=== PATIENT | female | born 1990 | race Caucasian/White ===

== ENCOUNTER 2018-07-09 18:12 | Emergency (ER) | payer OTHER ==
--- NOTE | 2018-07-09 18:36 | EDPHY ---
H & P Stated Complaint: llq abd pain Time Seen by Provider: 07/09/18 18:36 HPI/ROS: HPI: This is a 28-year-old female who presents with Chief Complaint: Left lower quadrant pain Location: Left lower quadrant abdomen Quality: Pain Duration: Since last night Signs and Symptoms: no fever, no nausea, no vomiting, no hematemesis, no blood in stool, no abdominal bloating, no diarrhea, no back pain, no urinary symptoms , no vaginal bleeding/discharge, no indigestion, no chest pain, no shortness of breath Timing: Acute, constant Severity: Moderate Context: Patient is transgender, taking testosterone, presents with sudden onset of left lower quadrant abdominal pain that started last night. Pain is nonradiating in nature. Pain is described as mild to moderate. Nothing makes the pain better or worse. Patient reports that the pain started while she was having a bowel movement and urinating last night. She denies any dysuria, blood in her urine, nausea, vomiting, diarrhea, back pain, vaginal bleeding. No history of kidney stones. Modifying Factors: None Comment: ROS: A comprehensive 10 system review of systems is otherwise negative aside from elements mentioned in the history of present illness. MEDICAL/SURGICAL/SOCIAL HISTORY: Medical history: Transgender, hormone supplementation Surgical history: Denies Social history: Currently in a relationship. Family history noncontributory. CONSTITUTIONAL: Extremely well-appearing nontoxic appearing adult female, awake and alert, no obvious distress HEENT: Atraumatic and normocephalic, PERRL, EOMI. Nares patent; no rhinorrhea; no nasal mucosal edema. Tympanic membranes clear. Oropharynx clear, no exudate and moist pink mucosa. Airway patent. No lymphadenopathy. No meningismus. Cardiovascular: Normal S1/S2, regular rate, regular rhythm, without murmur rub or gallop. PULMONARY/CHEST: Symmetrical and nontender. Clear to auscultation bilaterally. Good air movement. No accessory muscle usage. ABDOMEN: Soft, nondistended, mild left lower quadrant tenderness, no rebound, no guarding, no peritoneal signs, no masses or organomegaly. No CVAT. Bowel sounds heard x4 quadrants. EXTREMITIES: 2/2 pulses, strength 5/5, no deformities, no clubbing, no cyanosis or edema. NEUROLOGICAL: no focal neuro deficits. GCS 15. SKIN: Warm and dry, no erythema. no rash. Good capillary refill. Source: Patient Exam Limitations: No limitations - Personal History LMP (Females 10-55): Over 28 Days Ago Current Tetanus Diphtheria and Acellular Pertussis (TDAP): No - Medical/Surgical History Hx Asthma: Yes Hx Chronic Respiratory Disease: No Hx Diabetes: No Hx Cardiac Disease: No Hx Renal Disease: No Hx Cirrhosis: No Hx Alcoholism: No Hx HIV/AIDS: No Hx Splenectomy or Spleen Trauma: No Other PMH: denies - Social History Smoking Status: Never smoked Constitutional: Initial Vital Signs Temperature (C) 37.1 C 07/09/18 18:18 Heart Rate 72 07/09/18 18:18 Respiratory Rate 18 07/09/18 18:18 Blood Pressure 141/72 H 07/09/18 18:18 O2 Sat (%) 94 07/09/18 18:18 O2 Delivery Mode Room Air Allergies/Adverse Reactions: codeine Allergy (Verified 07/09/18 18:17) latex Allergy (Verified 07/09/18 18:18) Home Medications: Medication Instructions Recorded Albuterol 07/09/18 Escitalopram Oxalate 07/09/18 Modafinil 07/09/18 NK [No Known Home Meds] 07/09/18 Testosterone 07/09/18 Medical Decision Making - Diagnostics Imaging Results: Imaging Impressions Abdomen CT 07/09/18 18:39 Impression: Features most consistent with an epiploic appendagitis adjacent to the proximal sigmoid colon in the left lower quadrant. Findings were discussed with Kathy Obregon PA-C at 20:34, on 07/09/2018. ED Course/Re-evaluation: Vital signs reviewed and stable. No systemic signs. Laboratory studies, urinalysis, IV fluids, IV medications, CT abdomen and pelvis scan ordered Given 1 L normal saline, IV Toradol with adequate relief of pain Labs reviewed. No signs of leukocytosis/anemia/platelet dysfunction/MATT/ elevated LFTs/electrolyte imbalance/pancreatitis. Urinalysis shows no signs of infection, no blood. 2039: Called by Radiology, Dr. Garduno, who advised CT abdomen and pelvis scan shows epiploic appendagitis adjacent to the proximal sigmoid colon in the left lower quadrant. Reassessed patient who is soft and nontender. Discussed case with attending who advised no antibiotics indicated and ibuprofen as needed. Referral to primary care provider given. This patient was seen under the supervision of my secondary supervising physician. I evaluated care for this patient independently. Discussed this patient with Dr. Kolb. Differential Diagnosis: Abdominal pain including but not limited to appendicitis, cholecystitis, gastritis and urinary tract infection. - Data Points Laboratory Results: Laboratory Results 07/09/18 18:55 07/09/18 18:55 07/09/18 07/09/18 07/09/18 18:55 18:55 18:55 WBC 7.04 10^3/uL 10^3/uL (3.80-9.50) RBC 5.35 10^6/uL H 10^6/uL (4.18-5.33) Hgb 16.9 g/dL H g/dL (12.6-16.3) Hct 48.7 % H % (38.0-47.0) MCV 91.0 fL fL (81.5-99.8) MCH 31.6 pg pg (27.9-34.1) MCHC 34.7 g/dL g/dL (32.4-36.7) RDW 13.2 % % (11.5-15.2) Plt Count 274 10^3/uL 10^3/uL (150-400) MPV 10.9 fL fL (8.7-11.7) Neut % (Auto) 52.8 % % (39.3-74.2) Lymph % (Auto) 32.1 % % (15.0-45.0) [place] % (Auto) 10.2 % % (4.5-13.0) Eos % (Auto) 4.1 % % (0.6-7.6) Baso % (Auto) 0.7 % % (0.3-1.7) Nucleat RBC Rel Count 0.0 % % (0.0-0.2) Absolute Neuts (auto) 3.71 10^3/uL 10^3/uL (1.70-6.50) Absolute Lymphs (auto) 2.26 10^3/uL 10^3/uL (1.00-3.00) Absolute Monos (auto) 0.72 10^3/uL 10^3/uL (0.30-0.80) Absolute Eos (auto) 0.29 10^3/uL 10^3/uL (0.03-0.40) Absolute Basos (auto) 0.05 10^3/uL 10^3/uL (0.02-0.10) Absolute Nucleated RBC 0.00 10^3/uL 10^3/uL (0-0.01) Immature Gran % 0.1 % % (0.0-1.1) Immature Gran # 0.01 10^3/uL 10^3/uL (0.00-0.10) Sodium 136 mEq/L mEq/L (135-145) Potassium 4.6 mEq/L mEq/L (3.3-5.0) Chloride 104 mEq/L mEq/L (97-110) Carbon Dioxide 21 mEq/l L mEq/l (22-31) Anion Gap 11 mEq/L mEq/L (8-16) BUN 10 mg/dL mg/dL (7-23) Creatinine 0.9 mg/dL mg/dL (0.6-1.0) Estimated GFR > 60 Glucose 83 mg/dL mg/dL (70-100) Calcium 9.4 mg/dL mg/dL (8.5-10.4) Total Bilirubin 0.5 mg/dL mg/dL (0.1-1.4) Conjugated Bilirubin 0.3 mg/dL mg/dL (0.0-0.5) Unconjugated Bilirubin 0.2 mg/dL mg/dL (0.0-1.1) AST 27 IU/L IU/L (14-46) ALT 27 IU/L IU/L (9-52) Alkaline Phosphatase 105 IU/L IU/L (38-126) Total Protein 7.4 g/dL g/dL (6.3-8.2) Albumin 4.6 g/dL g/dL (3.5-5.0) Lipase 123 IU/L IU/L (23-300) Beta HCG, Qual NEGATIVE Urine Color Urine Appearance Urine pH Ur Specific [place] Urine Protein Urine Ketones Urine Blood Urine Nitrate Urine Bilirubin Urine Urobilinogen Ur Leukocyte Esterase Urine Glucose 07/09/18 18:30 WBC RBC Hgb Hct MCV MCH MCHC RDW Plt Count MPV Neut % (Auto) Lymph % (Auto) [place] % (Auto) Eos % (Auto) Baso % (Auto) Nucleat RBC Rel Count Absolute Neuts (auto) Absolute Lymphs (auto) Absolute Monos (auto) Absolute Eos (auto) Absolute Basos (auto) Absolute Nucleated RBC Immature Gran % Immature Gran # Sodium Potassium Chloride Carbon Dioxide Anion Gap BUN Creatinine Estimated GFR Glucose Calcium Total Bilirubin Conjugated Bilirubin Unconjugated Bilirubin AST ALT Alkaline Phosphatase Total Protein Albumin Lipase Beta HCG, Qual Urine Color YELLOW Urine Appearance HAZY Urine pH 5.0 (5.0-7.5) Ur Specific [place] 1.019 (1.002-1.030) Urine Protein NEGATIVE (NEGATIVE) Urine Ketones TRACE H (NEGATIVE) Urine Blood NEGATIVE (NEGATIVE) Urine Nitrate NEGATIVE (NEGATIVE) Urine Bilirubin NEGATIVE (NEGATIVE) Urine Urobilinogen 2.0 EU H EU (0.2-1.0) Ur Leukocyte Esterase NEGATIVE (NEGATIVE) Urine Glucose NEGATIVE (NEGATIVE) Medications Given: Discontinued Medications Sodium Chloride (Ns) 1,000 mls @ 0 mls/hr IV EDNOW ONE; Wide Open PRN Reason: Protocol Stop: 07/09/18 18:40 Last Admin: 07/09/18 19:02 Dose: 1,000 mls Ketorolac Tromethamine (Toradol) 30 mg IVP EDNOW ONE Stop: 07/09/18 18:40 Last Admin: 07/09/18 19:03 Dose: 30 mg Departure - Departure Disposition: Home, Routine, Self-Care Clinical Impression: Appendicitis epiploica Condition: Good Instructions: Diverticulitis (ED), Diverticulitis Diet (ED) Additional Instructions: Consume a minimum of 8-10 glasses of water or electrolyte fluid replacement drinks that include Gatorade, Powerade, Pedialyte. Eat a bland diet for the next 48 hours and then slowly advance as tolerated. Take Tylenol 650 mg every 4 hours and/or Ibuprofen 600 mg every 8 hours with food as needed for pain. Take Zofran 1 tab every 4 hours as needed for nausea, vomiting. Follow diverticular diet and prevent constipation by using MiraLax daily as needed. Establish care with primary care physician. Referrals: Ruma Hatfield MD [[facility] Primary Care Provider] - As per Instructions
[2018-07-09] MEDS ORDERED: KETOROLAC 30 MG/1 ML SDV IVP ONE (18:39)
[2018-07-09] MEDS ORDERED: NS 1,000 ML IV ONE (18:39)
[2018-07-09] MEDS ORDERED: IOPAMIDOL (ISOVUE-300) 100 ML BTL ONE (18:52)
[2018-07-09 19:08] LABS: PLATELET COUNT 274 10^3/uL (150-400)
[2018-07-09] MEDS ORDERED: ONDANSETRON 4MG PREPACK#2 BTL TAKEHOME ONE (21:10)
[2018-07-09 21:26] VITALS: BP 138/91
== END 2018-07-09 21:25 | disposition home or self-care (01) ==
DX: Q43.8 Other specified congenital malformations of intestine (principal); E86.9 Volume depletion, unspecified
CPT/HCPCS: 96374; J1885; Q9967

== ENCOUNTER 2018-07-31 20:34 | Emergency (ER) | payer OTHER ==
[2018-07-31] MEDS ORDERED: NS 1,000 ML IV ONE (20:43)
--- NOTE | 2018-07-31 20:45 | EDPHY ---
H & P Time Seen by Provider: 07/31/18 20:43 HPI/ROS: Chief complaint. Blood in stool HPI. 28-year-old female with black stool today. They called the nurse hotline who recommended coming to the emergency department. Patient had diverticulitis a few weeks ago was not treated with antibiotics but just with relaxation and anti-inflammatories and that seemed to improve. She has no abdominal pain. No nausea or vomiting. Does have some fatigue. She had chronic diarrhea and was found to be lactose intolerant. She had a normal colonoscopy in January. She does have occasional GERD upper GI endoscopy. She does not have peptic ulcer disease. Denies taking Pepto-Bismol. No history of GI bleeding ROS 10 systems were reviewed and negative with the exception of the elements mentioned in the history of present illness Past Medical/Surgical History: Past medical history is significant for narcolepsy, asthma, depression Social History: , nonsmoker, no alcohol Smoking Status: Never smoked Physical Exam: General Appearance: Alert well-developed female mild distress vitals are stable Eyes: Pupils equal and round no pallor or injection. ENT, Mouth: Mucous membranes are moist. Respiratory: There are no retractions, lungs are clear to auscultation. Cardiovascular: Regular rate and rhythm. Gastrointestinal: Abdomen is soft and nontender, no masses, bowel sounds normal. Rectal exam shows brown stool Neurological: Awake and alert, sensory and motor exams grossly normal. Skin: Warm and dry, no rashes. Musculoskeletal: Neck is supple nontender. Extremities symmetrical, full range of motion. Psychiatric: Patient is oriented X 3, there is no agitation. Constitutional: Initial Vital Signs Temperature (C) 36.4 C 07/31/18 20:36 Heart Rate 84 07/31/18 20:36 Respiratory Rate 16 07/31/18 20:36 Blood Pressure 127/94 H 07/31/18 20:36 O2 Sat (%) 95 07/31/18 20:36 O2 Delivery Mode Room Air Allergies/Adverse Reactions: codeine Allergy (Verified 07/09/18 18:17) lactase Allergy (Verified 07/31/18 20:39) lactose Allergy (Verified 07/31/18 20:39) latex Allergy (Verified 07/09/18 18:18) Home Medications: Medication Instructions Recorded Albuterol 07/09/18 Escitalopram Oxalate 07/09/18 Modafinil 07/09/18 NK [No Known Home Meds] 07/09/18 Testosterone 07/09/18 Medical Decision Making Procedures: IV normal saline ED Course/Re-evaluation: Stool is heme-negative. Patient, and I discussed laboratory evaluation, treatment plan including criteria for return importance of follow-up and further evaluation. They expressed understanding and agreement Differential Diagnosis: I considered peptic ulcer disease, intestinal bleeding, diverticulitis. Patient has no abdominal pain. Normal workup including negative stool. - Data Points Laboratory Results: Laboratory Results 07/31/18 21:00 07/31/18 21:00 07/31/18 07/31/18 07/31/18 21:00 21:00 21:00 WBC RBC Hgb Hct MCV MCH MCHC RDW Plt Count MPV Neut % (Auto) Lymph % (Auto) [place] % (Auto) Eos % (Auto) Baso % (Auto) Nucleat RBC Rel Count Absolute Neuts (auto) Absolute Lymphs (auto) Absolute Monos (auto) Absolute Eos (auto) Absolute Basos (auto) Absolute Nucleated RBC Immature Gran % Immature Gran # PT 14.5 SEC SEC (12.0-15.0) INR 1.11 (0.83-1.16) APTT 25.8 SEC SEC (23.0-38.0) Sodium 138 mEq/L mEq/L (135-145) Potassium 3.6 mEq/L mEq/L (3.3-5.0) Chloride 104 mEq/L mEq/L (97-110) Carbon Dioxide 24 mEq/l mEq/l (22-31) Anion Gap 10 mEq/L mEq/L (6-14) BUN 9 mg/dL mg/dL (7-23) Creatinine 0.8 mg/dL mg/dL (0.6-1.0) Estimated GFR > 60 Glucose 103 mg/dL H mg/dL (70-100) Calcium 9.3 mg/dL mg/dL (8.5-10.4) Total Bilirubin 0.6 mg/dL mg/dL (0.1-1.4) Conjugated Bilirubin 0.3 mg/dL mg/dL (0.0-0.5) Unconjugated Bilirubin 0.3 mg/dL mg/dL (0.0-1.1) AST 20 IU/L IU/L (14-46) ALT 27 IU/L IU/L (9-52) Alkaline Phosphatase 89 IU/L IU/L (38-126) Total Protein 6.9 g/dL g/dL (6.3-8.2) Albumin 4.2 g/dL g/dL (3.5-5.0) Beta HCG, Qual NEGATIVE Stool Occult Bld Scrn 07/31/18 07/31/18 21:00 20:50 WBC 7.46 10^3/uL 10^3/uL (3.80-9.50) RBC 5.11 10^6/uL 10^6/uL (4.18-5.33) Hgb 16.2 g/dL g/dL (12.6-16.3) Hct 46.7 % % (38.0-47.0) MCV 91.4 fL fL (81.5-99.8) MCH 31.7 pg pg (27.9-34.1) MCHC 34.7 g/dL g/dL (32.4-36.7) RDW 13.3 % % (11.5-15.2) Plt Count 243 10^3/uL 10^3/uL (150-400) MPV 10.7 fL fL (8.7-11.7) Neut % (Auto) 52.3 % % (39.3-74.2) Lymph % (Auto) 35.1 % % (15.0-45.0) [place] % (Auto) 8.0 % % (4.5-13.0) Eos % (Auto) 3.8 % % (0.6-7.6) Baso % (Auto) 0.5 % % (0.3-1.7) Nucleat RBC Rel Count 0.0 % % (0.0-0.2) Absolute Neuts (auto) 3.90 10^3/uL 10^3/uL (1.70-6.50) Absolute Lymphs (auto) 2.62 10^3/uL 10^3/uL (1.00-3.00) Absolute Monos (auto) 0.60 10^3/uL 10^3/uL (0.30-0.80) Absolute Eos (auto) 0.28 10^3/uL 10^3/uL (0.03-0.40) Absolute Basos (auto) 0.04 10^3/uL 10^3/uL (0.02-0.10) Absolute Nucleated RBC 0.00 10^3/uL 10^3/uL (0-0.01) Immature Gran % 0.3 % % (0.0-1.1) Immature Gran # 0.02 10^3/uL 10^3/uL (0.00-0.10) PT INR APTT Sodium Potassium Chloride Carbon Dioxide Anion Gap BUN Creatinine Estimated GFR Glucose Calcium Total Bilirubin Conjugated Bilirubin Unconjugated Bilirubin AST ALT Alkaline Phosphatase Total Protein Albumin Beta HCG, Qual Stool Occult Bld Scrn NEGATIVE (NEGATIVE) Medications Given: Discontinued Medications Sodium Chloride (Ns) 1,000 mls @ 0 mls/hr IV EDNOW ONE; Wide Open PRN Reason: Protocol Stop: 07/31/18 20:44 Last Admin: 07/31/18 21:08 Dose: 1,000 mls Departure - Departure Disposition: Home, Routine, Self-Care Clinical Impression: Abdominal pain Qualifiers: Abdominal location: unspecified location Qualified Code(s): R10.9 - Unspecified abdominal pain Condition: Good Instructions: Gastrointestinal Bleeding (ED), Diverticulitis Diet (ED) Additional Instructions: May use Tums. May use [id number] Prilosec or Zantac as prescribed if you have heartburn or GERD. Return for worsening symptoms. Follow-up GI and surgery Referrals: NONE *PRIMARY CARE P,. [Primary Care Provider] - As per Instructions Angel Constantino MD [Medical Doctor] - As per Instructions Eddy Smith MD [Medical Doctor] - As per Instructions
[2018-07-31 21:13] LABS: PLATELET COUNT 243 10^3/uL (150-400)
[2018-07-31 21:33] LABS: INR 1.11 (0.83-1.16); PROTIME(PATIENT) 14.5 SEC (12.0-15.0)
[2018-07-31 22:06] VITALS: BP 121/76
== END 2018-07-31 22:05 | disposition home or self-care (01) ==
DX: K92.1 Melena (principal); R10.9 Unspecified abdominal pain; E86.9 Volume depletion, unspecified

== ENCOUNTER 2019-04-10 08:15 | Day surgery (SDC) | payer OTHER | END 2019-04-10 14:58 | disposition home or self-care (01) | LOC: FSGY 08:15 ==